=== PATIENT | female | born 1995 | race African-American/Black ===

== ENCOUNTER 2017-09-24 08:39 | Outpatient (CLI) | END 2017-09-24 11:15 | disposition home or self-care (01) ==

== ENCOUNTER 2017-10-28 18:20 | Outpatient (CLI) | END 2017-10-29 00:33 | disposition home or self-care (01) ==

== ENCOUNTER 2017-12-08 07:59 | Outpatient (CLI) | END 2017-12-08 10:29 | disposition home or self-care (01) ==

== ENCOUNTER 2018-01-16 14:35 | Inpatient (IN) | END 2018-01-18 11:26 | disposition home or self-care (01) | DRG 833 ==

== ENCOUNTER 2018-01-31 06:07 | Inpatient (IN) | END 2018-02-03 16:50 | disposition home or self-care (01) | DRG 788 ==